=== PATIENT | male | born 1970 | race African-American/Black ===

== ENCOUNTER 2021-10-12 08:03 | Emergency (ER) | payer MEDICAID, SELFPAY ==
--- NOTE | ~2021-10-12 | XR_ITS ---
EXAMINATION: LEFT FOOT AND ANKLE X-RAY CLINICAL INFORMATION: Inversion injury to base of fifth metatarsal bone COMPARISON: None TECHNIQUE: 3 views of the left foot and 3 views of the left ankle FINDINGS: Left foot: Bone alignment is normal. No fracture or dislocation is seen. There is mild arthritis at the first MTP joint. Joint spaces are otherwise normal. Soft tissues are normal. Left ankle: Bone alignment is normal. No fracture or dislocation is seen. There is mild arthritis at the ankle joint. The ankle mortise is normal. There is no ankle joint effusion. XR/XR foot LT 2V IMPRESSION: No fracture or dislocation. Mild arthritis at the ankle joint and first MTP joint.
--- NOTE | ~2021-10-12 | XR_ITS ---
EXAMINATION: LEFT FOOT AND ANKLE X-RAY CLINICAL INFORMATION: Inversion injury to base of fifth metatarsal bone COMPARISON: None TECHNIQUE: 3 views of the left foot and 3 views of the left ankle FINDINGS: Left foot: Bone alignment is normal. No fracture or dislocation is seen. There is mild arthritis at the first MTP joint. Joint spaces are otherwise normal. Soft tissues are normal. Left ankle: Bone alignment is normal. No fracture or dislocation is seen. There is mild arthritis at the ankle joint. The ankle mortise is normal. There is no ankle joint effusion. XR/XR ankle LT min 3V IMPRESSION: No fracture or dislocation. Mild arthritis at the ankle joint and first MTP joint.
[2021-10-12 08:35] VITALS: BP 131/89; PULSE 61; RESP 20; TEMP 36.7; O2SAT 97
[2021-10-12 08:40] VITALS: BP 131/89; PULSE 61; RESP 18; O2SAT 98; BMI 43.9
--- NOTE | 2021-10-12 08:55 | ED_ITS ---
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 Was able to work but this morning it was too painful. Now with swelling ecchymosis and pain complaint: ankle injury Onset (ago): day(s) Injury: Left: ankle Type of Injury: inversion Place: work Severity: moderate Exacerbating factors: weight bearing and movement Related Data Previous Rx's Medication Instructions Recorded naproxen 500 mg tablet (Naprosyn) 500 mg PO BID #20 tab 10/12/21 Allergies Allergy/AdvReac Type Severity Reaction Status Date / Time lisinopril Allergy Angioedema Verified 10/12/21 08:43 Review of Systems Constitutional: Constitutional: Reports no additional constitutional complaints Eyes: Eyes: Reports no additional eye complaints ENT: Denies dizziness Cardiovascular: Cardiovascular: Reports no additional cardiovascular complaints Respiratory: Respiratory: Reports as per HPI Gastrointestinal: Gastrointestinal: Reports no additional gastrointestinal complaints Musculoskeletal: Musculoskeletal: Reports no additional musculoskeletal complaints Integumentary/Breasts: Skin/Breast: Denies rash Neurologic: Reports system reviewed and no additional complaints, except as documented, Denies dizziness and Denies Sensory deficit (Neuro) Psychiatric: Psychiatric: Denies anxiety PMFSH Past Medical History Medical History Achilles rupture, right Anxiety Hypertension Tibia/fibula fracture Social History Social History Advance Directives: No Advance Directives Information Provided: No Physical Exam Vital Signs: Vital Signs: Last Vital Signs Temp 98.0 F 10/12/21 08:35 Pulse 61 10/12/21 08:40 Resp 18 10/12/21 08:40 BP 131/89 10/12/21 08:40 Pulse Ox 98 10/12/21 08:40 BMI result Body Mass Index 43.9 Const: General: healthy appearing Nutritional Appearance: obese Orientation/consciousness: oriented to person and patient oriented x3 Limi tations: no limitations HEENT: Head: Yes normal to inspection Ears: external ears normal General nose exam: Normal external nose present Mouth: Normal oral and palatal mucosa present and oropharynx normal Throat: Yes posterior oropharynx normal Eyes: General: appearance normal, both eyes and all related structures Neck: Other: supple Neck: Yes normal visual inspection Chest: Chest palpation & inspection: normal inspection of the chest Resp: Auscultation: clear to auscultation bilaterally Cardio: Jugular venous distension: no JVD Rate: regular rate Rhythm: regular rhythm Heart sounds: S1 normal heart sound present and S2 normal heart sound present GI: Inspection: Yes normal to inspection Palpation (GI): Soft to palpation, nontender and No hepatosplenomegaly present Auscultation: normal bowel sounds : General: Yes no CVA tenderness Back/Spine/Pelvis: Back: no CVA tenderness Skin: General skin exam: no rashes or lesions noted Neuro: General: oriented to person and patient oriented x3 Cranial nerves: Yes CN's II-XII intact bilaterally Motor exam (neuro): 5/5 motor strength present throughout Sensory Exam: No Sensory deficit (Neuro) Extrem: Other: left foot with base of the 5th swelling and ecchymosis and lateral malleoulous swelling and ecchymosis Psych: Appearance: grossly normal Course Reevaluation(s) Reevaluation #1: no fractures will place in airsplint and crutches Time: 10:30 MDM - Extremity Injury (Lower) Imaging Data ankle and foot: Radiologist's impression: FINDINGS: Left foot: Bone alignment is normal. No fracture or dislocation is seen. There is mild arthritis at the first MTP joint. Joint spaces are otherwise normal. Soft tissues are normal. Left ankle: Bone alignment is normal. No fracture or dislocation is seen. There is mild arthritis at the ankle joint. The ankle mortise is normal. There is no ankle joint effusion.? XR/XR ankle LT min 3V IMPRESSION: No fracture or dislocation. Mild arthritis at the ankle joint and first MTP joint.? Discharge Plan Discharge Clinical Impression: Ankle sprain and strain, Contusion of foot Patient Disposition: Home, Self-Care Instructions: Ankle Sprain (ED), Foot Contusion (ED) Prescriptions: New naproxen [Naprosyn] 500 mg tablet 500 mg PO BID Qty: 20 0RF Referrals: Raman Orozco PA [Primary Care Provider] - 1 week Stand Alone Forms: Work/School Release
== END 2021-10-12 10:49 | disposition home or self-care (01) ==
PROVIDERS: Emergency Provider Emergency Medicine; PCP Physician Assistant Medical
DX: S93.402A Sprain of unspecified ligament of left ankle, initial encounter (principal); S90.32XA Contusion of left foot, initial encounter; W01.0XXA Fall on same level from slipping, tripping and stumbling without subsequent striking against object, initial encounter; Y93.9 Activity, unspecified; Y92.000 Kitchen of unspecified non-institutional (private) residence as the place of occurrence of the external cause; Y99.9 Unspecified external cause status
CPT/HCPCS: 73610; 73620; 99283